=== PATIENT | male | born 1995 | race Caucasian/White ===

== ENCOUNTER → 2016-11-13 | Outpatient (CLI) | payer OTHER ==
[~2016-11-13] MED LIST: FLONASE16 GM; GUAIFENESIN600 M2 PO; KEPPRA1000 MG PO; ROBITUSSIN100 MG/51 PO; SUDAFED30 M1 PO; TESSALON PERLE100 M1 PO; VOLTAREN75 MG PO
--- NOTE | ~2016-11-13 | EE ---
Unit #: [id number]: [id number] Patient: JODY LING [id number] [address] [place], [place] [address] [id number] O MR#: [id number] NAME: JODY LING. : 1995 SEX: M STUDY DATE/TIME: 11/13/2016 UNIT: [facility] ROOM: STUDY DESCRIPTION: EEG Attending Physician: Nima Castellanos II., M.D. Primary Care Physician: Betsey Eid M.D. NEURODIAGNOSTICS REPORT EXAM EEG REASON FOR STUDY Seizures. TECH [employer] TECHNICAL INFORMATION This is a routine EEG performed using the standard International 10-20 System of electrode placement. Photic stimulation was performed. Hyperventilation was also performed. REPORT Throughout the entire study, the best background rhythm seen is approximately 10 Hz. This rhythm is seen in both posterior head regions symmetrically and does attenuate to eye opening and closure. Photic stimulation was performed which did not elicit any epileptiform abnormalities. However, a good photic driving response was seen. Hyperventilation was also performed which failed to reproduce any abnormal buildup. Drowsiness was seen throughout the study towards the end with evidence of K complexes. No sleep was recorded during the EEG. Throughout the entire study, there were no electrographic seizures recorded nor were there any independent epileptiform abnormalities seen. INTERPRETATION This is a normal EEG. There was some drowsiness seen during the EEG; however, no sleep was recorded. A normal EEG does not rule out the possibility of a seizure disorder. Clinical correlation is advised. Dictated by... Nima Castellanos II., M.D. GWS/casandra TD: 11/18/2016 05:44 JOB #: [id number] Unit #: [id number] #: [id number] Patient: JODY LING NEURODIAGNOSTICS REPORT X NEURODIAGNOSTICS REPORT
--- NOTE | ~2016-11-13 | MR17 ---
[facility] A Service [facility][1] RADIOLOGY TEXT RESULTS PATIENT: JODY LING LOCATION: [facility] : 96 UNIT #: [id number] AGE: [address]: Nima Castellanos II, MD SEX: M ORDER DR: [id number] [facility] [address] [facility]. [place], [place] [address] [id number] O MR#: [id number] Acc #: [id number] NAME: JODY LING. : 1995 SEX: M STUDY DATE/TIME: 11/13/2016 8:56 UNIT: [facility] ROOM: STUDY DESCRIPTION: MR Brain WWo Contrast Attending Physician: Nima Castellanos II., M.D. Ordering Physician: Nima Castellanos II., M.D. Primary Care Physician: Betsey Eid M.D. MRI CENTER REPORT This report is preliminary unless electronic signature is present. EXAM Brain MR with and without contrast 11/13/2016 COMPARISON STUDIES None PROCEDURE Routine brain MR with and without contrast. HISTORY Chronic seizure disorder, taking chronic seizure medication. FINDINGS The hippocampal formations are symmetric in size and signal. There is no intracranial mass or abnormal enhancement and no evidence of acute or chronic intracranial hemorrhage. Brain parenchymal signal is normal and there is no hydrocephalus or extraaxial fluid collection. There are fairly symmetric prominent cervical lymph nodes though this is a common finding in young patients. IMPRESSION Negative brain MR with and without contrast. No mass or abnormal enhancement or potential seizure focus. Mildly prominent cervical lymph nodes and minimally prominent nasopharyngeal adenoidal tissues, no convincing acute abnormality. Dictated by... Gabo Gonzalez M.D. THIS IS AN ELECTRONICALLY VERIFIED REPORT Gabo Gonzalez M.D. at 11/16/2016 4:32 PM OSIEL/reed [facility] A [facility] RADIOLOGY TEXT RESULTS PATIENT: JODY LING LOCATION: [facility] : 96 UNIT #: [id number] AGE: [address]: Nima Castellanos II, MD SEX: M ORDER DR: TD: 11/13/2016 15:49 JOB #: [id number] MRI CENTER REPORT COPY
== END | disposition home or self-care (01) ==
LOC: CMRI 07:33
DX: R56.9 Unspecified convulsions (principal)
CPT/HCPCS: 70553; 95816; A9577

== ENCOUNTER 2017-01-10 18:52 | Emergency (ER) | payer OTHER ==
[2017-01-10 19:56] LABS: ALBUMIN SERUM 4.9 g/dL (3.5-5.0); BILIRUBIN, DIRECT 0.1 mg/dL (0.0-0.2); BILIRUBIN,INDIRECT 0.3 mg/dL (0.0-0.9); BILIRUBIN,TOTAL 0.4 mg/dL (0.2-2.0); BUN/CREATININE RATIO 10.9; CALCIUM SERUM 9.3 mg/dL (8.4-10.2); CREATININE SERUM 1.1 mg/dL (0.6-1.4); GLOM FILT RATE Estimated 96.1 mL/min (>60); POTASSIUM 4.1 mmol/L (3.5-5.1); PROTEIN TOTAL SERUM 7.9 g/dL (6.0-8.3)
== END 2017-01-10 20:10 | disposition home or self-care (01) ==
LOC: SED 18:52
PROVIDERS: Emergency Medicine
DX: G40.409 Other generalized epilepsy and epileptic syndromes, not intractable, without status epilepticus (principal); F19.10 Other psychoactive substance abuse, uncomplicated; F17.210 Nicotine dependence, cigarettes, uncomplicated
CPT/HCPCS: 36415; 80048; 80076; 99284